=== PATIENT | male | born 1990 | race Caucasian/White ===

== ENCOUNTER 2017-07-24 18:10 | Emergency (ER) | payer OTHER ==
[2017-07-24 18:47] VITALS: BP 114/61
--- NOTE | 2017-07-24 18:49 | UC ---
Laceration HPI - HPI Summary HPI Summary: 26 YEAR OLD MALE PRESENTS WITH COMPLAINS OF PUNCTURE WOUND OF LEFT ARM SECONDARY TO GLASS. - History Of Current Complaint Chief Complaint: UCLaceration Stated Complaint: LEFT ARM CUT BY GLASS POSS FB Time Seen by Provider: 07/24/17 18:48 Hx Obtained From: Patient Laceration Location: Arm - LEFT ARM Mechanism Of Injury: Sharp Trauma Onset/Duration: Sudden Onset Severity: Moderate Pain Scale Used: 0-10 Numeric - 6 - Allergies/Home Medications Allergies/Adverse Reactions: Allergies Allergy/AdvReac Type Severity Reaction Status Date / Time No Known Allergies Allergy Verified 07/24/17 18:48 PMH/Surg Hx/FS Hx/Imm Hx - Surgical History Surgical History: Yes Surgery Procedure, Year, and Place: APPY AGE 13 YR - Social History Alcohol Use: Occasionally Substance Use Type: None Smoking Status (MU): Former Smoker - Immunization History Most Recent Tetanus Shot: 2014 Review of Systems Constitutional: Negative Skin: Other - LEFT ARM PUNTURE WOUND Eyes: Negative ENT: Negative Respiratory: Negative Cardiovascular: Negative Gastrointestinal: Negative Genitourinary: Negative Motor: Negative Neurovascular: Negative Musculoskeletal: Negative Neurological: Negative Psychological: Negative All Other Systems Reviewed And Are Negative: Yes Physical Exam Triage Information Reviewed: Yes Appearance: Well-Appearing Vital Signs: Initial Vital Signs Temp 37.4 C 07/24/17 18:39 Pulse 66 07/24/17 18:39 Resp 18 07/24/17 18:39 BP 114/61 07/24/17 18:39 Eye Exam: Normal ENT Exam: Normal Dental Exam: Normal Neck exam: Normal Neck: Positive: 1 Respiratory Exam: Normal Cardiovascular Exam: Normal Abdominal Exam: Normal Musculoskeletal Exam: Normal Neurological Exam: Normal Psychological Exam: Normal Skin: Positive: Other - LEFT ARM PUNCTURE WOUND Laceration Course/Dx - Differential Dx - Laceration/Wound Provider Diagnoses: LEFT ARM PUNCTURE WOUND Discharge - Discharge Plan Condition: Stable Disposition: HOME Prescriptions: Amoxicillin/Clavulanate TAB* [Augmentin TAB 875*] 875 mg PO BID #20 tab Patient Education Materials: Laceration (ED), Soft Tissue Foreign Body (ED) Referrals: Shawn Mora MD [Medical Doctor] - Remy Gan MD [Medical Doctor] -
--- NOTE | 2017-07-24 19:43 | RAD ---
INDICATION: Left forearm injury with glass. TECHNIQUE: 2 views of the left forearm were obtained. FINDINGS: The bones are normal alignment. No fracture or radiopaque foreign body is seen. IMPRESSION: NO RADIOPAQUE FOREIGN BODY IS SEEN.
[2017-07-24] MEDS ORDERED: Amoxicillin/Clavulanate TAB* 875 MG PO ONE ×2 (20:29)
== END 2017-07-24 20:40 | disposition home or self-care (01) ==
LOC: UCCORT 18:10
DX: S41.132A Puncture wound without foreign body of left upper arm, initial encounter (principal); W25.XXXA Contact with sharp glass, initial encounter; Y93.9 Activity, unspecified; Y92.9 Unspecified place or not applicable; Z87.891 Personal history of nicotine dependence
CPT/HCPCS: 99203; A9270-GY; G0463

== ENCOUNTER 2019-02-14 08:22 | Emergency (ER) | payer OTHER ==
[2019-02-14 08:28] VITALS: BP 133/69
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
[2019-02-14] MEDS ORDERED: Ibuprofen TAB* 600 MG PO ONE (09:12)
== END 2019-02-14 09:53 | disposition home or self-care (01) ==
LOC: UCCORT 08:22
DX: S20.211A Contusion of right front wall of thorax, initial encounter (principal); Z87.891 Personal history of nicotine dependence; W22.8XXA Striking against or struck by other objects, initial encounter; Y92.9 Unspecified place or not applicable
CPT/HCPCS: 99212; A9270-GY; G0463